=== PATIENT | female | born 1975 | race Caucasian/White ===

== ENCOUNTER 2019-01-27 18:25 | Emergency (ER) | payer MEDICAID ==
[~2019-01-27] VITALS: Ht 157.5 cm; Wt 81.3 kg
[2019-01-27 18:27] VITALS: Ht 157.5 cm; Wt 81.3 kg
[2019-01-27] MEDS ORDERED: ONDANSETRON 4 MG INJ IV STA (18:45)
[2019-01-27] MEDS ORDERED: morphine 4 MG/ML VIAL IV STA (18:45)
[2019-01-27] MEDS ORDERED: KETOROLAC 30 MG INJ IV STA (19:48)
[2019-01-27 19:57] VITALS: BP 144/81; PULSE 81; RESP 16
== END 2019-01-27 20:01 | disposition home or self-care (01) ==
LOC: E/R 18:25
DX: K80.20 Calculus of gallbladder without cholecystitis without obstruction (principal)
CPT/HCPCS: 36415; 76705; 80053; 81001; 81025; 83690; 85025; 93005; 96374; 96375; J1885; J2270; J2405; Z7502; 81003